=== PATIENT | male | born 1965 | race Caucasian/White ===

== ENCOUNTER 2022-11-10 16:57 | Outpatient (CLI) | payer MEDICAID | END 2022-11-10 16:58 | disposition critical access hospital (66) | LOC: EMS 16:57 | DX: R45.1 Restlessness and agitation (principal); R46.5 Suspiciousness and marked evasiveness | CPT/HCPCS: A0425; A0429; A0999 ==

== ENCOUNTER 2022-11-10 17:24 | Emergency (ER) | payer MEDICAID, OTHER ==
[2022-11-10] MEDS ORDERED: OLANZapine ODT 5 MG TABLET TL STA (17:26)
--- NOTE | 2022-11-10 17:29 | ED Physician Documentation ---
History of Present Illness - Stated complaint Stated Complaint: AGITATED - Chief complaint Chief Complaint: MHE - History obtained from History obtained from: Patient, EMS - History of Present Illness Timing: Today Pain level max: 0 Pain level now: 0 - Additonal information Additional information: 57-year-old male checked himself into [facility] today for detox from methamphetamines. He states that he was feeling paranoid, [facility] states he refused to take medication so they sent him to the emergency department. He is not suicidal or homicidal. Not actively hallucinating. He is from [place]. He does not take any medications at home. He states he has a history of PTSD. Denies any falls. No fevers. No chills. No abdominal pain. Has been calm and cooperative with EMS. Review of Systems Constitutional: denies: Fever, Chills GI: denies: Vomiting Skin: denies: Rash Musculoskeletal: denies: Neck pain, Back pain Neurologic: denies: Headache PD PAST MEDICAL HISTORY - Past Medical History Past Medical History: Yes Psych: Post traumatic stress disorder - Past Surgical History Past Surgical History: No - Allergies Allergies/Adverse Reactions: Allergies Allergy/AdvReac Type Severity Reaction Status Date / Time No Known Drug Allergies Allergy Verified 11/10/22 17:27 - Living Situation Living Arrangement: reports: At home - Social History Does the pt have substance abuse?: Yes Substance Use and Type: Meth - Family History Family history: reports: Non contributory PD ED PE NORMAL - Vitals Vital signs reviewed: Yes - General General: Alert and oriented X 3, No acute distress, Well developed/nourished - HEENT HEENT: PERRL, Moist mucous membranes - Neck Neck: Supple, no meningeal sign - Cardiac Cardiac: RRR, Strong equal pulses - Respiratory Respiratory: No respiratory distress, Clear bilaterally - Abdomen Abdomen: Soft, Non tender, Non distended - Derm Derm: Warm and dry - Extremities Extremities: No edema, No calf tenderness / cord - Neuro Neuro: Alert and oriented X 3 - Psych Psych: Normal mood, Normal affect Results - Vitals Vitals: Vital Signs - 24 hr 11/10/22 17:28 Temperature 36.5 C Heart Rate 90 Respiratory 16 Rate Blood Pressure 129/61 O2 Saturation 98 Oxygen O2 Source Room air PD Medical Decision Making - ED course Complexity details: considered differential, d/w patient ED course: Patient is calm and cooperative here. He is not hallucinating. He is responding appropriately. He request medication to help calm him down. He took Zyprexa without difficulty. He will be discharged back to detox/rehab. No emergency medical condition at this time. This document was made in part using voice recognition software. While efforts are made to proofread this document, sound alike and grammatical errors may occur. Departure - Departure Disposition: 01 Home, Self Care Clinical Impression: Methamphetamine abuse Condition: Stable Instructions: ED Drug Abuse General Comments: You have taken zyprexa here. You can return to [facility] for further care.
[2022-11-10] MEDS ORDERED: LORazepam 1 MG TABLET PO STA (18:10)
[2022-11-10 20:14] VITALS: BP 98/62
== END 2022-11-10 20:16 | disposition home or self-care (01) ==
LOC: ED 17:24
DX: F15.10 Other stimulant abuse, uncomplicated (principal)
CPT/HCPCS: 99283; A9270; J8499